=== PATIENT | male | born 1960 | race Caucasian/White ===

== ENCOUNTER 2020-09-13 06:49 | Observation (INO) ==
--- NOTE | 2020-08-24 08:07 | ANES ---
Anesthesia Pre Procedure Eval HOME MEDICATIONS alirocumab 75 mg/mL subcutaneous pen injector 75 mg SUBCUT Q2W ml 07/27/20 [Last Taken Unknown] amlodipine 10 mg tablet 10 mg PO DAILY tab 07/27/20 [Last Taken Unknown] ezetimibe 10 mg tablet 10 mg PO DAILY tab 07/27/20 [Last Taken Unknown] ibuprofen 800 mg tablet 800 mg PO TID tab 07/27/20 [Last Taken Unknown] Allergies/Adverse Reactions: Allergies Allergy/AdvReac Type Severity Reaction Status Date / Time No Known Allergies Allergy Verified 07/27/20 14:47 - Planned Procedure Planned Procedure: Rt Arthroplasty Total Knee Medication List Reviewed:: Yes Allergies Verified: Yes Medical History (Last Reviewed 08/24/20 @ 08:05 by Archie Kennedy CRNA) Asthma Onset Date: Unknown Hyperlipidemia Onset Date: Unknown Hypertension Onset Date: Unknown Surgical History (Last Reviewed 08/24/20 @ 08:05 by Archie Kennedy CRNA) History of cholecystectomy Onset Date: Unknown Family History (Last Reviewed 08/24/20 @ 08:05 by Archie Kennedy CRNA) Father Myocardial infarction Mother Medical history unknown - Family Anesthesia History Family History:: no untoward family reactions to anesthesia - Airway/Neck/Teeth Denture Type: Full upper, Full lower - Respiratory Respiratory History: asthma Smoking Status: Current every day smoker Discussed smoking cessation including day of surgery: Yes - Cardiovascular Cardiac History: hypertension, hyperlipidemia Tolerate Activity: Fair - Gastrointestinal NPO since: instructed npo after mn - Anesthesia Assessment and Plan ASA Class: PS, III Anesthesia Type Plan: Spinal - adductor canal block
[~2020-09-13 06:49] MED LIST: BUPIVACAINE HCL/EPINEPHRINE 50 ML VIAL IJ ONE; MIDAZOLAM HCL/PF 5 MG/ML VIAL ONE; MORPHINE SULFATE 15 MG TABLET.SA PO PRN; PROPOFOL VIAL IV ONE; ROPIVACAINE HCL/PF 100 MG, EPINEPHrine 0.2 MG, KETOROLAC TROMETHAMINE 30 MG in NORMAL S... IJ PRN; TRANEXAMIC ACID 1,000 MG in NORMAL SALINE 100 ML IV PRN; ceFAZolin SODIUM 1 GM VIAL IV PRN
[2020-09-13] MEDS ORDERED: ISOPROPYL ALCOHOL 480 APPL BTL MC ONE (07:02)
[2020-09-13] MEDS ORDERED: ceFAZolin SODIUM 1 GM VIAL ONE (07:02)
[2020-09-13] MEDS: RINGER'S SOLUTION,LACTATED 1,000 ML IV PRN ×2 (07:55→11:01)
--- NOTE | 2020-09-13 11:33 | OR ---
Operative Report - Dictated Report Narrative: Date: 09/13/2020 Preoperative diagnosis: Right knee degenerative joint disease. Postoperative diagnosis: Right knee degenerative joint disease. Procedure: Right total knee arthroplasty. Surgeon: Yong Hanson M.D. Dietetics Director: Power Jackson PA-C (provided and essential set of skilled, educated hands that assisted with transfer, positioning, prepping, draping, manipulation, retraction, placement of jigs, injection, insertion of implants, irrigation, closure wounds, and dressings all of which could not be performed by the available surgical crew) Anesthesia: Spinal with regional block and local periarticular joint injection. Complications: None Specimens: Bone. Estimated blood loss: Minimal. Tourniquet time: 90 Minutes at 325 millimeters of mercury. Retained implants: Depuy Attune size 7 right lugged cemented posterior stabilized femoral component. Size 7 fixed-bearing cemented tibial platform. 7 by 7 millimeter posterior stabilized cross-linked tibial insert. 41 millimeter medialized patella button. Indications: Mr. Ellington is a 60-year-old gentleman who advanced right knee pain and arthrosis. This patient was followed in my clinic for period of time with significant complaints of right knee pain consistent with arthritic changes. He had failed conservative measures including, but not limited to, activity modification, passage of time, medications, and other conservative measures. Patient wished to proceed with surgical treatment. The risks, benefits, and alternatives were discussed in clinic. The risks of , blood clots, bleeding, infection, nerve/tendon blood vessel/ injury, malposition of components, intraoperative fracture, postoperative limited range of motion, persistent pain, failure of components, and need for additional procedures. Patient wished to proceed consent was obtained after answering all questions. Procedure: After marking the correct extremity on the floor, the patient was taken to the operating room. A timeout was performed. IV antibiotics consisting of Ancef were administered prior to the procedure. A regional followed by spinal anesthetic was induced by anesthesia, per my request, on the operative table with all bony prominences well-padded. López catheter was placed, and a bump was placed under the operative side buttock. SCDs and REBECA hose were utilized on the nonoperative leg. A well-padded tourniquet was applied to the operative thigh. The operative leg was then pre-scrubbed with alcohol, prepped, and draped in a standard sterile fashion. After exsanguinating the extremity with an Esmarch bandage, the tourniquet was inflated. After marking out the anterior knee for standard incision centered over the patella, the skin was incised and dissected down to the joint retinaculum. The joint retinaculum was marked out as well as the horizontal axis of the patella, and a standard medial parapatellar arthrotomy was then made. The most proximal aspect of the quadriceps tendon and the patella tendon insertion were protected from release. A partial synovectomy was performed as well as a resection of the infrapatellar fat pad. The distal femoral fat pad proximal to the trochlea was also resected using cautery. The soft tissues were elevated off the medial aspect of the proximal tibia using a [place] elevator ensuring that we did not transect the medial collateral ligament. Upon initial evaluation range of motion was approximately 0 degrees to 120 degrees of flexion. There were signs of advanced arthrosis in the medial, lateral, and patellofemoral joint spaces. There were large marginal osteophytes which were removed with a rongeur. The knee was hyperflexed and the patella was tucked laterally. Protecting the surrounding soft tissues with Homans, an entry drill was placed down the femoral canal using Whitesides line for guidance into the entry point. The i ntramedullary femoral alignment kaylynn was utilized in order to cut the distal femur in 5 degrees of valgus resecting 10 millimeters of bone. Next the distal femur was sized to a size 7. A posterior referencing guide was utilized to place the distal femoral cutting block in 3 degrees of external rotation. This was pinned into place. The rotation was confirmed both visually and based on anatomic landmarks. The 4 in 1 cutting jig of the appropriate size was utilized in order to make all bony cuts. The prashanth wing was used to ensure no notching. Retractors were utilized in order to protect surrounding soft tissues. This cut did not result in any excessive notching. We then cut the box centered over the distal femur. This allowed for resection of the anterior and posterior cruciate ligaments. I then turned my attention to the preparation of the tibia. Using an extra medullary tibial alignment kaylynn, 3 millimeters of bone was resected off the medial articular surface. This was made perpendicular to the mechanical axis of the joint with the alignment kaylynn centered over the ankle mortise. The alignment kaylynn was checked and was noted to be parallel to the mechanical axis, centered over the medial one third of the tibial tubercle, paralleling the anterior surface of the tibia. We then turned our attention to the remaining meniscus and soft tissues. These were removed while protecting the surrounding ligaments and soft tissues. The marginal osteophytes off the anterior, posterior, medial, lateral aspects of the femur and tibia were removed. The tibia was sized out to a size 7. Next the tibia was drilled and punched in an externally rotated position. Next the trial femur and a series of tibial inserts were utilized in order to allow for full extension and maximal flexion. It was found that a 7 millimeter insert gave the best range of motion and stability at multiple flexion points as well as at full extension there was less than 2 mm of gapping both medially and laterally. There is minimal anterior translation with the knee at 90 degrees of flexion and no signs of being able to dislocate the knee. The patella was then prepared. The initial thickness was 26 millimeters. This was reamed down to 16 millimeters parallel to the anterior surface of the patella. It was sized out to a size 41 medialized patella button. This was then drilled and trialed. Without any medial restraint the patella tracked appropriately and did not sublux or dislocate. At this point, it was felt these were the appropriate sized implants, and all trials were removed. The standard periarticular joint injection consisting of ropivacaine, Toradol, and epinephrine were injected into the periarticular joint tissues. The bony surfaces were thoroughly irrigated with a pulsatile-suction saline irrigation device. A bone plug from the prior resected anterior chamfer cut was placed into the drill hole at the distal femur. The bony surfaces were then dried in preparation for placement of the implants. The cement was vacuum mixed per the radio station operator's instructions. The cement was placed on the dry bony surfaces and posterior aspect of the implants. The implants were impacted into place, removing all extruded cement. At this point anesthesia administered tranexamic acid per protocol intravenously. The knee was placed in extension with axial loading with the trial insert while the cement cured. Once the cement cured, all remaining extruded cement was removed. The knee was placed through a range of motion with the trial insert to ensure appropriate range of motion and stability. Final range of motion was approximately 0 to 130 degrees. The knee was again thoroughly irrigated with pulsatile saline lavage. The final polyethylene insert was then impacted into place ensuring no retained soft tissues. The remaining periarticular joint injection was injected. A medium Hemovac drain was placed exiting superior laterally. The knee was then placed over a triangle and the arthrotomy was closed with interrupted #1 Vicryl after thoroughly irrigating the joint. The deep and subcutaneous tissues were closed with interrupted 0 and 3-0 Vicryl respectively. Skin was closed with a running subcutaneous 3-0 Monocryl and Prineo Dermabond dressing. 4 x 4's, Sof-Rol, and a full leg Alberto wrap were applied. All sponge, needle, blade, and instrument counts were correct prior to closing the wounds. Postoperative condition: The patient was awoken and transferred to the postanesthesia care unit in stable condition. Plan is to be admitted to the inpatient medical/surgical floor postoperatively for 24 hours of IV antibiotics, physical therapy, occupational therapy, and medical comanagement. Patient will be weightbearing as tolerated with range of motion as tolerated. DVT prophylaxis will be with SCDs, REBECA hose, and pharmacological anticoagulation. Anticipated hospital stay is approximately 1-3 days.
[2020-09-13] MEDS ORDERED: diphenhydrAMINE HCL 50 MG/ML VIAL IV PRN (11:34)
[2020-09-13] MEDS ORDERED: ACETAMINOPHEN 500 MG TABLET PO PRN (11:34)
[2020-09-13] MEDS ORDERED: MAG HYDROX/ALUMINUM HYD/SIMETH 30 ML UDC PO PRN (11:34)
[2020-09-13] MEDS ORDERED: MORPHINE SULFATE 2 MG/ML DISP.SYRIN IV PRN (11:34)
[2020-09-13] MEDS ORDERED: oxyCODONE HCL/ACETAMINOPHEN 1 TAB TABLET PO PRN (11:34)
[2020-09-13] MEDS ORDERED: ZOLPIDEM TARTRATE 5 MG TABLET PO PRN (11:34)
[2020-09-13] MEDS ORDERED: MAGNESIUM HYDROXIDE 30 ML UDC PO PRN (11:34)
[2020-09-13] MEDS ORDERED: ONDANSETRON HCL/PF 2 MG/ML VIAL IV PRN (11:34)
--- NOTE | 2020-09-13 11:53 | ANES ---
Post Anesthesia Discharge - Transfer of Care Transfer of Care handoff given to nurse: Yes - Discharge from PACU Discharge from PACU when meets criteria: Yes - Awake and comfortable.
--- NOTE | 2020-09-13 11:53 | ANES ---
Anesthesia Procedure Note Procedure Note: ANESTHESIA PROCEDURE NOTE Date of Procedure: 09/13/2020 Time of procedure: 9:35 AM Performed by: HENRY Huff CRNA, MSN Survey Research Analyst: Dav Santamaria RN. Preprocedure diagnosis: Post right total knee arthroplasty pain. Post procedure diagnosis: Same. Procedure: Right adductor Canal Block. Indications: Post right total knee arthroplasty pain relief. Findings: See below. Details of the procedure: The patient was brought to OR #4 and placed in supine position. The patient's right femoral area to the knee was prepped with chlorhexidine and using ultrasound guidance the right femoral artery and nerve was identified and then followed to the level of the adductor canal. Lidocaine 1% was infiltrated to the skin of the intended injection site. Under ultrasound guidance the saphenous nerve was approached with visualization of a 4 inch shielded block needle. Once saphenous nerve was identified with proximity to the needle tip, the saphenous nerve was surrounded with 30 mL bupivacaine 0.25% with 1-200,000 epinephrine. Please see radiology/ultrasound report for details and retained images of the procedure. EBL: 0 Fluids: N/A. Specimen: N/A. Post procedure condition: The patient tolerated the procedure well. No complications were noted. Thank you for this consultation. Ghassan Silva CRNA, ARNP, MSN
[2020-09-13] MEDS: KETOROLAC TROMETHAMINE 15 MG/ML VIAL IV SCH ×2 (12:20→18:20)
[2020-09-13] MEDS: DEXTROSE 5%-LACTATED RINGERS 1,000 ML IV PRN ×2 (12:20→20:14)
[2020-09-13] MEDS: ceFAZolin SODIUM 1 GM in DEXTROSE 5 % IN WATER 100 ML IV SCH ×4 (12:34→20:16)
--- NOTE | 2020-09-13 12:35 | ANES ---
Post Anesthesia Assessment - Vital Signs Vitals: Last Vital Signs Temp 36.5 C 09/13/20 12:10 Pulse 70 09/13/20 12:10 Resp 22 H 09/13/20 12:10 BP 87/57 L 09/13/20 12:10 Pulse Ox 93 09/13/20 12:10 Airway Patency: Normal - Mental Status Level Of Consciousness: Awake, Alert, Appropriate - Pain Level Pain Score: 0 - N/V Assessment Nausea/Vomiting Presence: None Dehydration:: No
[2020-09-13 17:56] LABS: Urine Bilirubin 1 mg/dl (NEGATIVE); Urine Blood 50 /ul (NEGATIVE); Urine Ketone 5 mg/dL (NEGATIVE); Urine Protein 15 mg/dL (NEGATIVE); Urine Specific Gravity >=1.030 SP.GR. (1.005-1.030); Urine Urobilinogen Normal (NORMAL); Urine pH 5.5 pH (5.0-7.0)
[2020-09-13 18:19] LABS: Urine Appearance Cloudy (CLEAR); Urine Color Yellow; Urine Nitrite Positive (NEGATIVE); Urine WBC None Seen /hpf (0-5)
[2020-09-13 18:20] LABS: Urine Bacteria 4+
[2020-09-13] MEDS: MORPHINE SULFATE 15 MG TABLET.SA PO SCH (20:16)
[2020-09-13] MEDS ORDERED: SENNOSIDES/DOCUSATE SODIUM 1 TAB TABLET PO SCH (21:00)
[2020-09-14] MEDS: KETOROLAC TROMETHAMINE 15 MG/ML VIAL IV SCH ×2 (00:43→07:34)
[2020-09-14] MEDS: ceFAZolin SODIUM 1 GM in DEXTROSE 5 % IN WATER 100 ML IV SCH ×2 (00:44)
[2020-09-14 06:11] LABS: Hematocrit 39.2 % (42.0-52.0); Hemoglobin 13.1 gm/dL (13.5-18.0); Mean Cell Volume 91.2 fl (78-100); Mean Corpuscular Hemoglobin 30.5 pg (27-31); Mean Corpuscular Hgb Conc 33.4 g/dl (32-36); Mean Platelet Volume 10.2 fl (8-11.3); Platelet Count 232 K/mm3 (150-450); Red Cell Distribution Width 12.7 % (11.5-14.0); White Blood Count 10.7 K/mm3 (4.0-10.5)
[2020-09-14 06:30] LABS: Anion Gap 10.2 mmol/L (6.8-13.8); BUN/Creatinine Ratio 14.3 (9.0-21.6); Calcium * 8.2 mg/dL (7.9-10.9); Carbon Dioxide 28.6 mmol/L (24-32.6); Estimated Creat Clear 87.2; Potassium 3.8 mmol/L (3.4-4.6)
[2020-09-14] MEDS ORDERED: HYDROCHLOROTHIAZIDE 12.5 MG CAPSULE PO SCH (09:00)
[2020-09-14] MEDS ORDERED: LISINOPRIL HCTZ PO SCH (09:00)
[2020-09-14] MEDS ORDERED: EZETIMIBE 10 MG TABLET PO SCH (09:00)
[2020-09-14] MEDS ORDERED: METOPROLOL SUCCINATE 50 MG TABLET.SA PO SCH (09:00)
[2020-09-14] MEDS ORDERED: amLODIPine BESYLATE 10 MG TABLET PO SCH (09:00)
[2020-09-14] MEDS ORDERED: LISINOPRIL 20 MG TABLET PO SCH (09:00)
[2020-09-14] MEDS ORDERED: METOPROLOL SUCCINATE PO SCH ×2 (09:00)
[2020-09-14] MEDS: MORPHINE SULFATE 15 MG TABLET.SA PO SCH (09:53)
[2020-09-14] MEDS ORDERED: FLU VACC QS2020-21(6MOS UP)/PF 60 MCG/0.5 ML SYRINGE IM ONE (10:00)
[2020-09-14] MEDS ORDERED: ENOXAPARIN SODIUM 40 MG/0.4 ML SYRG SC SCH (10:34)
--- NOTE | 2020-09-14 11:40 | DS ---
(1) Status post right knee replacement Problem: Acute (2) Hypertension Problem: Chronic Date of Discharge:: 09/14/20 Hospital Course: Mr. Ellington was admitted to the floor after undergoing right total knee arthroplasty. Tolerated this well. Was admitted to the floor postoperatively for 24 hours of IV antibiotics, pain control, medical comanagement, and occupational and physical therapy. OT and PT were consulted to assist with activities of daily living and ambulation. Was made weightbearing as tolerated with range of motion as tolerated. Pain was initially controlled with IV regimen. This was transitioned to oral once tolerating a by mouth intake. Was resumed on home diet and medications. Had a López catheter inserted and the operating room which was discontinued on postoperative day 1. A drain was placed intraoperatively into the knee which was discontinued on postoperative day 1. Lovenox SCD and REBECA hose were utilized for DVT prophylaxis. Vital signs remained stable to the hospital course. Serial labs were obtained which showed a final hemoglobin of 13.1 grams. BMP was reviewed and was stable. Physical examination throughout the hospital course showed an extremity that had sensation that was intact to light touch, palpable pulses, a benign wound, motor intact to the toes, ankle, and knee. Knee range of motion was approximately 5 degrees to 70 degrees. Once an oral pain regimen was tolerated and physical therapy goals were met, it was felt that they were stable for discharge to home. Instructions: Continue with weightbearing as tolerated and range of motion as tolerated. It is OK to shower on the wound if it is not draining. If you note any drainage or for comfort you can cover with dry gauze and tape. Change every 2-3 days as needed. Continue with physical therapy. Resume home diet. Report any fever over 101.5 Fahrenheit, uncontrolled pain, increased drainage, foul odor of drainage, new or increased calf pain or shortness of breath, or any other significant complaints. A 325mg dialy aspirin will be started after finishing anticoagulation if not allergic. Continue with REBECA hose on the operative extremity until instructed otherwise. Patient did not want any narcotic pain medicines sent to his pharmacy. He states he will take [id number] Tylenol as needed for pain. Due to previous history of dependency he can also resume ibuprofen [id number] as needed once he is done with his Lovenox injections. No driving until instructed otherwise. Follow up in approximately 10-14 days. Procedures Performed: see notes below List Procedures: Right total knee arthroplasty Results and Findings: Lab Pending Results 09/13/20 17:36: Urine Color Yellow, Urine Appearance Cloudy, Urine pH 5.5, Ur Specific [place] >=1.030, Urine Protein 15 H, Urine Glucose (UA) Negative, Urine Ketones 5, Urine Blood 50 H, Urine Nitrate Positive H, Urine Bilirubin 1 H, Urine Urobilinogen Normal, Ur Leukocyte Esterase Negative, Urine RBC 5-10 H, Urine WBC None seen, Ur Epithelial Cells None seen, Uric Acid Crystals Many - 3+ H, Urine Bacteria 4+ H 09/14/20 06:00: WBC 10.7 H, RBC 4.30 L, Hgb 13.1 L, Hct 39.2 L, MCV 91.2, MCH 30.5, MCHC 33.4, RDW 12.7, Plt Count 232, MPV 10.2 09/14/20 06:00: Sodium 140, Plasma Sodium 140, Potassium 3.8, Chloride 105, Carbon Dioxide 28.6, Anion Gap 10.2, BUN 14, Creatinine 0.98, Est GFR (Non-Af Amer) 83, BUN/Creatinine Ratio 14.3, Random Glucose 125 H, Calcium 8.2 Discharge Location: Home Disposition: Home self-care Condition: Good Discharge Activity: Activity as tolerated, Weight bearing, Other - With wheeled walker Discharge Diet: Low salt Additional Patient Instructions (free text): Physical Therapy at [facility] on September 15 at 10:30am. Please fax demographics and PT order to [phone]. Follow up [facility] Orthopedic office appointment on SaturdayOctober 04 at 9:00am. Prescriptions (Any new or edited meds): Enoxaparin Sodium [Lovenox] 40 mg SC Q24H #7 disp.syrin Transmission Status: Pending to [facility] #[id number] Complete Home Medications List: Complete Home Medication List: amlodipine 10 mg tablet 10 mg PO DAILY tab 07/27/20 ezetimibe 10 mg tablet 10 mg PO DAILY tab 07/27/20 ibuprofen 800 mg tablet 800 mg PO TID tab 07/27/20 Lisinopril-Hctz 20-12.5 mg Tab 12.5 mg PO DAILY 09/13/20 Metoprolol Succinate 150 mg PO DAILY 09/13/20 Acetaminophen [Tylenol] 1,000 mg PO Q6H PRN tablet 09/14/20 Enoxaparin Sodium [Lovenox] 40 mg SC Q24H #7 disp.syrin 09/14/20 Forms: Patient Portal Registration
[2020-09-14 13:22] VITALS: BP 123/86
== END 2020-09-14 13:32 | disposition home or self-care (01) ==
LOC: SUR 06:49 → MS 06:49
PROVIDERS: ADMIT Orthopaedic Surgery; ATTEND Orthopaedic Surgery